=== PATIENT | male | born 1980 | race Two or more races ===

== ENCOUNTER 2019-05-28 14:51 | Emergency (ER) | payer OTHER ==
[~2019-05-28] VITALS: Ht 172.7 cm; Wt 124.7 kg
== END 2019-05-28 17:38 | disposition home or self-care (01) ==
LOC: ER 14:51
DX: S90.852A Superficial foreign body, left foot, initial encounter (principal); S90.851A Superficial foreign body, right foot, initial encounter; W56.89XA Other contact with other nonvenomous marine animals, initial encounter; Y93.89 Activity, other specified; Y92.832 Beach as the place of occurrence of the external cause; Y99.8 Other external cause status